=== PATIENT | male | born 1980 | race African-American/Black ===

== ENCOUNTER 2018-07-15 06:17 | Emergency (ER) | payer OTHER | END 2018-07-15 07:48 | disposition other institution (70) | LOC: ED 06:17 | DX: Z02.89 Encounter for other administrative examinations (principal); R41.82 Altered mental status, unspecified; R94.31 Abnormal electrocardiogram [ECG] [EKG] ==

== ENCOUNTER 2018-07-15 06:17 | Emergency (ER) | payer SELFPAY ==
[~2018-07-15] VITALS: Ht 175.3 cm; Wt 104.3 kg
[2018-07-15 06:27] VITALS: Ht 175.3 cm; Wt 104.3 kg
[2018-07-15 07:48] VITALS: BP 137/88
== END 2018-07-15 07:48 | disposition other institution (70) ==
LOC: ED 06:17
DX: R41.82 Altered mental status, unspecified (principal)
CPT/HCPCS: G0480